=== PATIENT | female | born 1995 | race Caucasian/White ===

== ENCOUNTER → 2018-07-18 | Outpatient (CLI) | payer OTHER ==
[2016-04-19 10:33] VITALS: BMI 32.9
[~2018-07-18] MED LIST: AMOX-559 PO; AMOX500T10 PO; DOC100 PO; ETON68IM SQ; ETON68IM2 SQ; HYDR-317 PO; HYDR-385 PO; IBUP-2704 PO; IBUP800T37 PO; LOR5/325 PO; ONDA4TAB PO; OXYC-865 PO; PENI-24 PO; PER PO; POLY10DR20 OP; PREN-127 PO; PROM-110 PO; Return to Work; Return to work; [UNRECOGNIZED DRUG - CODE]; [UNRECOGNIZED DRUG - CODE]; [UNRECOGNIZED DRUG - CODE]
[2018-07-18 11:02] LABS: PLATELET COUNT, AUTOMATED 204 K/uL (150-450)
--- NOTE | 2018-07-18 15:53 | RADIOLOGY IMAGING REPORT ---
FACILITY: [facility] - [place] PATIENT NAME: Anna Greene : 1995 MR: [id number] V: [id number] EXAM DATE: ORDERING PHYSICIAN: ISREAL CEE TECHNOLOGIST: Location: [facility] - [place], [place] Patient: Anna Greene : 1995 Visit/Account:[id number] Date of Sevice: 07/18/2018 EXAMINATION: Transvaginal pelvic ultrasound with duplex Doppler evaluation 07/18/2018 2:11 PM HISTORY: Pelvic pain x1 week.; LMP: 06/05/2018 COMPARISON STUDIES: none. FINDINGS: Initially some transabdominal study was done through the bladder. Uterus: 7.9 x 3.9 x 5.1 cm Myometrium: negative Endometrium: Negative. 5 mm thickness. Cervix: Negative Ovaries: right ovary 3.4 x 2.7 x 1.5 cm, left ovary 3.5 x 2.3 x 1.8 cm, follicles are present in the right ovary, largest an ovoid unilocular 1.5 cm structure. Small follicles are also present in the l eft ovary. No hemorrhagic or otherwise, gated cyst. Blood flow is documented in each ovary by Doppler ultrasound. Adnexa: Moderate amount of anechoic free fluid. Free pelvic fluid: none IMPRESSION: 1. There is a moderate amount of anechoic free fluid in the pelvis. This may be incidental and phys iologic although might indicate recent ovarian cyst/follicle leakage or rupture to account for the cl inical pain presentation. 2. Otherwise unremarkable study. Report Dictated By: Julius Murry MD at 07/18/2018 3:46 PM Report E-Signed By: Julius Murry MD at 07/18/2018 3:49 PM WSN:[id number]
== END ==
LOC: LAB 10:46
PROVIDERS: ATTEND Nurse Practitioner Primary Care
DX: N83.291 Other ovarian cyst, right side (principal)
CPT/HCPCS: 36415; 76856; 81001; 82040; 82247; 82310; 82374; 82435; 82565; 82947; 84075; 84132; 84155; 84295; 84450; 84460; 84520; 84703; 85025; 87210; 87491; 87591

== ENCOUNTER 2018-10-24 19:47 | Emergency (ER) | payer OTHER ==
[2016-04-19 10:33] VITALS: Wt 65.8 kg
[~2018-10-24 19:47] MED LIST changes: +GUAI120L3 PO; +Work Note
[2018-10-24 19:52] VITALS: BP 123/77
--- NOTE | 2018-10-24 19:57 | ER Report ---
History and Physical Time Seen By MD: 19:54 Hx. of Stated Complaint: patient diagnosed with influenza on Saturday, patient still having a lot of congestion, but started having pain in both ears. patient took mortin and tylenol about 1900. HPI/ROS CHIEF COMPLAINT: Influenza and cough HISTORY OF PRESENT ILLNESS: This is a 23-year-old female presents to the emergency department for influenza and a cough. Patient states she was diagnosed with influenza on Saturday, has had persistent congestion and nonproductive cough. She also states that she's had increased pressure and pain in both ears. She's been taking ibuprofen and Tylenol as needed. She does have intermittent aches and chills. No nausea or vomiting. No diarrhea. No meningismus or any other complaints. REVIEW OF SYSTEMS: Respiratory: As above. ENT: As above. Cardiovascular: No chest pain, no palpitations. Gastrointestinal: No vomiting, no abdominal pain. Musculoskeletal: No back pain. Allergies: Coded Allergies: Sulfa (Sulfonamide Antibiotics) (Verified Allergy, Mild, 09/19/16) Home Meds Discontinued Scripts [Work Note] No Conflict Check Patient seen in the office today. Positive for influenza A. Excuse from work 10/20/18 - 10/22/18. May return 10/23/18 as tolerated. Prov:ISREAL CEE DNP, FNP-BC 10/21/18 Hydrocodone Bit/Acetaminophen (HYDROCODON-ACETAMINOPHEN 5-325) 1 Each Tablet, 1- 2 TAB PO Q6-8H PRN for PAIN, #15 TAB 0 Refills Prov:ISREAL CEE DNP, FNP-BC 07/18/18 Etonogestrel (NEXPLANON) 68 Mg Implant, 68 MG SQ DIRECTED, #1 IMPLANT 0 Refills Prov:ISREAL CEE DNP, FNP-BC 07/18/18 Past Medical/Surgical History The patient has a past medical and surgical history of depression, appendectomy, cholecystectomy. Reviewed Nurses Notes: Yes Hx Smoking: No Smoking Status: Never Smoker Exposure to Second Hand Smoke?: No Hx Substance Use Disorder: No Hx Alcohol Use: No Constitutional Vital Sign - Last 24 Hours 10/24/18 10/24/18 10/24/18 19:52 20:20 20:27 Temp 98.2 Pulse 80 72 80 Resp 16 16 16 B/P (MAP) 123/77 Pulse Ox 95 O2 Delivery Room Air Physical Exam General Appearance: The patient is alert, has no immediate need for airway protection and no current signs of toxicity. Eyes: Pupils equal and round no injection. ENT: Bulging TMs bilaterally, pearly pino, landmarks noted, no injection. Erythema noted to the posterior oropharynx, mild hypertrophy, no exudates. Respiratory: Chest is non tender, lungs are clear to auscultation. Cardiac: regular rate and rhythm. Gastrointestinal: Abdomen is soft and non tender, no masses, bowel sounds normal. Musculoskeletal: Neck: Anterior cervical chain lymphadenopathy, submandibular lymphadenopathy. Extremities have full range of motion and are non tender. Skin: No rashes or lesions. DIFFERENTIAL DIAGNOSIS: After history and physical exam differential diagnosis was considered for pneumonia, influenza, viral syndrome. Medical Decision Making ED Course/Re-evaluation ED Course The patient was admitted to a room. A history and physical were obtained. Differential diagnoses were considered. The patient I reviewed her symptoms, I did give her a DuoNeb which did help with some of the coughing symptoms. She was also given Magic mouthwash which did relieve some of the discomfort in her throat. Given Flonase and an MDI inhaler for home use. Serous instructed to take the medications as prescribed, otherwise symptomatic treatment with ibuprofen and Tylenol, plenty of fluids, I also recommended using a humidifier. The patient expressed understanding, she was discharged home at this time. She was in agreement with this plan of care. I also recommended following up with her primary care provider next week for reevaluation, return to the ER for any other concerns. Decision to Disposition Date: Oct 24, 2018 Decision to Disposition Time: 20:44 Depart Departure Latest Vital Signs Vital Signs Date Time Temp Pulse Resp B/P (MAP) Pulse Ox O2 Delivery O2 Flow Rate FiO2 10/24/18 20:27 80 16 10/24/18 19:52 98.2 123/77 95 Room Air Impression: Primary Impression: Influenza Additional Impression: Cough Condition: Improved Disposition: HOME OR SELF-CARE Referrals: ISREAL CEE DNP, [facility] (PCP) 1 Week New Scripts No Active Prescriptions or Reported Meds Patient Instructions: Acute Cough (ED), Influenza (ED) Additional Instructions: Use the Magic mouthwash as needed for throat irritation. Use the Flonase 2 sprays in each nostril once a day. Use the albuterol inhaler as needed for cough. Take ibuprofen or Tylenol as needed for aches, chills and pain. Be sure to drink plenty of fluids. Get as much rest as possible. Return to the ER for any other concerns or worsening symptoms. Problem Qualifiers JESS REED [employer] Oct 24, 2018 19:57
[2018-10-24] MEDS ORDERED: MAGIC MOUTHWASH 90 ML BTL PO ONE (20:15)
[2018-10-24] MEDS ORDERED: ALBUTEROL 8 GM INHALER INH ONE (20:15)
[2018-10-24] MEDS ORDERED: FLUTICASONE PROP 0.05% 16 GM ONE (20:15)
[2018-10-24] MEDS ORDERED: ALBUTEROL/IPRATROPIUM 3 ML NEB NEB ONE (20:15)
[2018-10-24] MEDS ORDERED: MAGIC MOUTHWASH 90 ML BTL PO PRN ×2 (20:20→20:25)
== END 2018-10-24 20:51 | disposition home or self-care (01) ==
LOC: ER 20:03
DX: J11.1 Influenza due to unidentified influenza virus with other respiratory manifestations (principal); R05 Cough
CPT/HCPCS: 94640; 99283; J3535; J7620